=== PATIENT | male | born 1990 | race Two or more races ===

== ENCOUNTER 2023-04-28 18:58 | Emergency (ER) | payer OTHER ==
[2023-04-28 19:27] VITALS: BP 130/87; PULSE 60; RESP 18; TEMP 98.3; BMI 27.5
== END 2023-04-28 20:21 | disposition home or self-care (01) ==
LOC: FER 18:58
DX: M54.6 Pain in thoracic spine (principal); W18.40XA Slipping, tripping and stumbling without falling, unspecified, initial encounter; X50.1XXA Overexertion from prolonged static or awkward postures, initial encounter
CPT/HCPCS: 71045-TC-FY; 99283-25